=== PATIENT | female | born 1945 | race Hispanic/Latino ===

== ENCOUNTER 2018-06-13 08:38 | Observation (INO) | payer MEDICARE ==
[2018-06-13 09:10] LABS: CREATININE 0.9 mg/dL (0.5-1.5); POTASSIUM 4.1 mmol/L (3.5-5.1)
[2018-06-13 09:16] LABS: BILIRUBIN,TOTAL 0.4 mg/dL (0.2-1.0); TOTAL PROTEIN, SERUM 7.4 g/dL (6.0-8.3)
[2018-06-13 09:22] LABS: INR 0.92 (0.85-1.15); PROTHROMBIN TIME 9.7 SEC (9.6-11.6)
[2018-06-13 09:44] LABS: BASOPHILS % (AUTO) 1.4 % (0.0-5.0); EOSINOPHILS % (AUTO) 5.9 % (0.0-8.0); HEMATOCRIT 42.4 % (36-48); LYMPHOCYTES % (AUTO) 37.1 % (21.0-51.0); MEAN CORPUSCULAR HEMOGLOBIN 27.4 pg (27.0-33.0); MEAN CORPUSCULAR HGB CONC 33.1 g/dL (32.0-36.0); MEAN CORPUSCULAR VOLUME 82.8 fL (79-99); NEUTROPHILS % (AUTO) 45.6 % (40.0-77.0); NUCLEATED RED BLOOD CELLS 0.2 % (0.0-0.19); PLATELET COUNT (AUTO) 211 K/uL (130-400); RED BLOOD CELL COUNT(AUTO) 5.13 MIL/uL (4.00-5.50); RED CELL DISTRIBUTION WIDTH 14.4 % (11.0-15.5); WHITE BLOOD COUNT (AUTO) 7.1 K/uL (4.8-10.8)
[2018-06-13 09:50] LABS: APPEARANCE,URINE CLEAR (CLEAR); BILIRUBIN,URINE NEGATIVE (NEGATIVE); COLOR,URINE YELLOW (YELLOW); GLUCOSE, URINE (UA) NEGATIVE (NEGATIVE); KETONES,URINE NEGATIVE (NEGATIVE); LEUKOCYTE ESTERASE ,URINE NEGATIVE (NEGATIVE); NITRATE,URINE NEGATIVE (NEGATIVE); OCCULT BLOOD,URINE NEGATIVE (NEGATIVE); PH,URINE 6.5 (5.0-8.0); PROTEIN,URINE NEGATIVE (NEGATIVE); UROBILINOGEN,URINE 0.2 mg/dL (0.2-1.0)
[2018-06-13] MEDS ORDERED: ONDANSETRON HCL 4 MG/2 ML VIAL IV PRN (10:15)
[2018-06-13] MEDS ORDERED: ACETAMINOPHEN 325 MG TAB PO PRN (10:15)
[2018-06-13] MEDS: NITROGLYCERIN 1GM/1 INCH PACKET TD SCH (10:15)
[2018-06-13] MEDS ORDERED: MORPHINE SULFATE 2 MG/ML 1ML SYG IV PRN (10:15)
[2018-06-13] MEDS ORDERED: SODIUM CHLORIDE 0.9% 1000ML 1,000 ML IV ONE (10:37)
[2018-06-13] MEDS ORDERED: CLOPIDOGREL BISULFATE 300 MG TAB ONE (10:37)
[2018-06-13] MEDS ORDERED: NITROGLYCERIN 1GM/1 INCH PACKET TD ONE (10:38)
[2018-06-13] MEDS ORDERED: METOPROLOL TARTRATE 25 MG TAB ONE (10:38)
[2018-06-13 10:54] LABS: CREATINE KINASE, TOTAL 65 U/L (21-232); MYOGLOBIN 30 ng/mL (10-92); TROPONIN I < 0.04 ng/mL (0.00-0.06)
[2018-06-13] MEDS: CLOPIDOGREL BISULFATE 75 MG TAB PO SCH (11:45)
[2018-06-13 12:19] VITALS: BP 211/98
[2018-06-13 16:14] VITALS: BP 213/112
[2018-06-13] MEDS ORDERED: REGADENOSON 0.4 MG/5 ML PF SYG IVP SCH (16:30)
[2018-06-13 18:41] VITALS: BP 152/78
[2018-06-13] MEDS ORDERED: LABETALOL 20 MG/4 ML DISP.SYRIN IV ONE (19:01)
[2018-06-13 20:12] VITALS: BP 152/78
[2018-06-13 21:39] VITALS: BP 135/78
[2018-06-13] MEDS: METOPROLOL TARTRATE 25 MG TAB PO SCH (21:43)
[2018-06-13] MEDS: SODIUM CHLORIDE 0.9% 1000ML 1,000 ML IV SCH (21:43)
[2018-06-13 22:02] LABS: CREATINE KINASE, TOTAL 52 U/L (21-232); MYOGLOBIN 34 ng/mL (10-92); TROPONIN I < 0.04 ng/mL (0.00-0.06)
[2018-06-14 00:12] VITALS: BP 135/74
[2018-06-14 02:17] LABS: CREATINE KINASE, TOTAL 44 U/L (21-232); MYOGLOBIN 33 ng/mL (10-92); TROPONIN I < 0.04 ng/mL (0.00-0.06)
[2018-06-14] MEDS: NITROGLYCERIN 1GM/1 INCH PACKET TD SCH ×2 (02:56→10:15)
[2018-06-14 04:16] VITALS: BP 140/76
[2018-06-14] MEDS: SODIUM CHLORIDE 0.9% 1000ML 1,000 ML IV SCH (07:20)
[2018-06-14 08:00] VITALS: BP 140/80
[2018-06-14] MEDS ORDERED: PANTOPRAZOLE SODIUM 40 MG TABLET.DR PO SCH (08:41)
[2018-06-14] MEDS ORDERED: ASPIRIN 325 MG TABLET PO SCH (09:00)
[2018-06-14] MEDS ORDERED: ENOXAPARIN SODIUM 40 MG/0.4 ML SYRINGE SQ SCH (09:00)
[2018-06-14] MEDS: METOPROLOL TARTRATE 25 MG TAB PO SCH (09:00)
[2018-06-14] MEDS ORDERED: PANTOPRAZOLE 40 MG/VIAL IVP SCH (09:00)
[2018-06-14] MEDS: CLOPIDOGREL BISULFATE 75 MG TAB PO SCH (10:15)
[2018-06-14 11:51] VITALS: BP 182/93
== END 2018-06-14 13:22 | disposition home or self-care (01) ==
LOC: EDH 08:38 → EDHIP 10:03 → 3AH 11:50
PROVIDERS: ADMIT Internal Medicine; ATTEND Internal Medicine
DX: R07.89 Other chest pain (principal); I10 Essential (primary) hypertension; E78.2 Mixed hyperlipidemia; E11.9 Type 2 diabetes mellitus without complications; Z23 Encounter for immunization
CPT/HCPCS: 36415 ×2; 71045; 78452; 80053; 81003; 82550 ×4; 83874 ×3; 83880; 84484 ×4; 85025; 85610; 85730; 93005; 93017; 93306; 99285; A9500 ×2; G0008; G0378 ×27; J2785; J7030 ×2; Q2038; 96374; C9113; J1650

== ENCOUNTER → 2018-07-10 | Outpatient (CLI) | payer OTHER | END | disposition home or self-care (01) | LOC: OIH 14:43 | PROVIDERS: ATTEND Internal Medicine Cardiovascular Disease | DX: Z13.6 Encounter for screening for cardiovascular disorders (principal) | CPT/HCPCS: 75571 ==

== ENCOUNTER → 2018-08-12 | Outpatient (CLI) | payer MEDICARE | END | disposition home or self-care (01) | LOC: SHCH 14:55 | PROVIDERS: ATTEND Internal Medicine Cardiovascular Disease | DX: G45.0 Vertebro-basilar artery syndrome (principal) | CPT/HCPCS: 93880 ==

== ENCOUNTER → 2025-06-17 | Outpatient (CLI) | payer MEDICARE ==
[2025-06-17] MEDS: REGADENOSON 0.4 MG/5 ML PF SYG IVP ONE (11:52)
== END | disposition home or self-care (01) ==
LOC: RAH 09:03
PROVIDERS: ATTEND Internal Medicine Cardiovascular Disease
DX: I25.10 Atherosclerotic heart disease of native coronary artery without angina pectoris (principal)
CPT/HCPCS: 78452; 93017; J2785; A9500 ×2